=== PATIENT | male | born 1960 | race Caucasian/White ===

== ENCOUNTER 2021-01-06 08:19 | Outpatient (CLI) | payer MEDICARE | END 2021-01-06 08:20 | disposition home or self-care (01) | LOC: MADLAB 08:19 → MADRAD 08:20 | PROVIDERS: ATTEND Nurse Practitioner Family | DX: M17.11 Unilateral primary osteoarthritis, right knee (principal); M76.31 Iliotibial band syndrome, right leg; M25.561 Pain in right knee ==